=== PATIENT | female | born 1950 ===

== ENCOUNTER → 2016-10-21 | Outpatient (CLI) | payer OTHER ==
--- NOTE | 2016-10-21 09:57 | DIAGNOSTIC IMAGING REPORT ---
Abdominal aorta ultrasound CLINICAL HISTORY: Z13.6 Screening for AAA (aortic abdominal aneurysm)[id number] COMPARISON STUDY: None. FINDINGS: Moderate calcified plaque throughout the abdominal aorta. The abdominal aorta is normal in caliber measuring 2.5 cm proximally, 2.4 cm at the midportion, and 2.0 cm distally. Bilateral common iliac arteries are also normal caliber. IMPRESSION: No evidence for an abdominal aortic aneurysm. Electronically signed by: Marcello Evangelista M.D. 10/21/2016 9:55 AM Dictated Date/Time: 10/21/2016 9:54 AM
== END | disposition home or self-care (01) ==
LOC: C.ULTR 09:27
PROVIDERS: ATTEND Family Medicine
DX: Z13.6 Encounter for screening for cardiovascular disorders (principal)

== ENCOUNTER → 2017-04-24 | Outpatient (CLI) | payer OTHER ==
[2017-04-24 13:11] LABS: ALT/SGPT 39 U/L (12-78); BLOOD UREA NITROGEN 14 mg/dl (7-18); CALCIUM 8.2 mg/dl (8.5-10.1); CARBON DIOXIDE 27 mmol/L (21-32); CHOLESTEROL 191 mg/dl (0-200); CREATININE 0.96 mg/dl (0.60-1.20); GLUCOSE 83 mg/dl (70-99); POTASSIUM 3.9 mmol/L (3.5-5.1); SODIUM 140 mmol/L (136-145)
[2017-04-24 13:26] LABS: LDL CHOLESTEROL CALCULATED 138 mg/dl
== END | disposition home or self-care (01) ==
LOC: C.LABMFLN 07:19
PROVIDERS: ATTEND Family Medicine
DX: E78.00 Pure hypercholesterolemia, unspecified (principal); E03.9 Hypothyroidism, unspecified; E55.9 Vitamin D deficiency, unspecified